=== PATIENT | female | born 1975 | race Caucasian/White ===

== ENCOUNTER 2017-03-22 06:31 | Emergency (ER) | payer BC ==
[~2017-03-22] VITALS: Ht 152.4 cm; Wt 68.0 kg
[2017-03-22 06:46] VITALS: BP 138/88
[2017-03-22] MEDS ORDERED: SODIUM CHLORIDE 0.9% 1,000 ML IV ONE (07:14)
[2017-03-22] MEDS ORDERED: NALBUPHINE HCL 10 MG/1ml INJECTION IV ONE (07:15)
[2017-03-22] MEDS ORDERED: PROMETHAZINE HCL 25 MG/ML 1ML IV PRN (07:15)
[2017-03-22 07:55] LABS: Basophils # (auto) 0 uL; Basophils % (auto) 0.8 % (0.0-2.0); Eosinophils # (auto) 0.1 uL; Eosinophils % (auto) 1.9 % (0.0-7.0); Hematocrit 42.7 % (36.0-46.0); Hemoglobin 14.7 g/dL (12.2-16.2); Lymphocytes # (auto) 1.7 uL; Lymphocytes % (auto) 30.4 % (10.0-50.0); Mean Corpuscular Hemoglobin 33.6 pg (28.0-32.0); Mean Corpuscular Hgb Conc. 34.4 g/dL (32.0-36.0); Mean Corpuscular Volume 97.5 fL (80.0-100.0); Mean Platelet Volume 8.3 fL (6.9-10.8); Monocytes # (auto) 0.5 uL; Monocytes % (auto) 8.4 % (0.0-12.0); Neutrophils # (auto) 3.3 uL; Neutrophils % (auto) 58.5 % (37.0-80.0); Platelet Count (auto) 237 10^3/uL (140-450); Red Cell Distribution Width 12.7 % (11.8-14.3); White Blood Cell 5.5 10^3/uL (4.4-10.8)
[2017-03-22 08:01] LABS: Urine Bilirubin Negative (Negative); Urine Blood Negative /uL (Negative); Urine Color Colorless (Yellow); Urine Glucose Normal (Normal); Urine Ketone Negative (Negative); Urine Nitrite Negative (Negative); Urine RBC <1 /hpf (0 - 4); Urine Squamous Epithelial Cell FEW /hpf (<5); Urine Urobilinogen Normal (Negative); Urine pH 6.5 (5.0-8.0)
[2017-03-22 08:14] LABS: INR 0.95 (0.9-1.15); Partial Thromboplastin Time 26.8 sec (22.64-33.71); Prothrombin Time 10.4 sec (9.37-12.3)
[2017-03-22 08:19] LABS: Albumin 4.3 g/dL (3.4-5.0); BUN/Creatinine Ratio 15.5; Bilirubin, Total 1.1 mg/dL (0.2-1.0); Calcium 9.2 mg/dL (8.5-10.1); Potassium 4.9 mmol/L (3.5-5.1); Total Protein 8.2 g/dL (6.4-8.2)
== END 2017-03-22 11:22 | disposition home or self-care (01) ==
LOC: ER 06:35
DX: K52.9 Noninfective gastroenteritis and colitis, unspecified (principal); Z98.51 Tubal ligation status; Z88.1 Allergy status to other antibiotic agents
CPT/HCPCS: 36415; 71020; 74176; 80053; 81001; 81025; 82150; 83690; 83735; 84443; 85025; 85610; 85730; 96361; 96374; 99285; J2300; J7030